=== PATIENT | female | born 1955 | race Caucasian/White ===

== ENCOUNTER 2024-12-13 11:41 | Emergency (ER) | payer MEDICARE, SELFPAY ==
[2024-12-13] VITALS (39 sets, daily range): BP systolic 115–241; BP diastolic 68–149; PULSE 0–106; RESP 14–15; O2SAT 51–100; BMI 39.1
[2024-12-13] MEDS: amiodarone 150 MG/100 ML PREMIX 400 MG IV (11:56)
--- NOTE | 2024-12-13 12:01 | XR_ITS ---
WS: [id number] Exam: XR chest 1V portable [id number] Date/Time of Exam: 12/13/2024 12:01 PM Reason For Exam: dyspnea/cough No priors. Extensive consolidating infiltrates throughout both lungs most prevalent in the mid and upper lung zones. Cardiac enlargement. No pleural effusions or pneumothorax. ET tube in satisfactory position ending about 3 cm above the melba. An enteric tube enters the stomach, the tip is not visible. Bony stru ctures are intact. The mediastinum is normal in contour. XR/XR chest 1V portable [id number] IMPRESSION: 1. Extensive bilateral consolidating infiltrates most prevalent in the mid and upper lung zones. 2. Cardiac enlargement. 3. ET tube and enteric tube both in satisfactory position.
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
--- NOTE | 2024-12-13 12:03 | ECG_ITS ---
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 Measurements Intervals [place]ora Rate: 126 P: 0 SD: 0 QRS: 43 QRSD: 116 T: 70 QT: 338 QTc: 491 Interpretive Statements ATRIAL FIBRILLATION WITH RAPID VENTRICULAR RESPONSE SEPTAL MYOCARDIAL INFARCTION , OF INDETERMINATE AGE [40+ ms Q WAVE IN V1/V2] Compared to ECG 12/13/2024 11:45:30 Ventricular premature complex(es) no longer present Aberrant conduction of supraventricular beat(s) no longer present ST (T wave) deviation no longer present Myocardial infarct finding still present Electronically Signed On 12-14-2024 22:42:28 CDT by Sean Mcgarry M.D. [id number]
--- NOTE | 2024-12-13 12:03 | CT_ITS ---
WS: [id number] CT HEAD TECHNIQUE: Noncontrast CT of the head obtained from the skullbase to the vertex. CLINICAL INFORMATION: Postcode nonresponsive COMPARISON: None. DLP: 1587.[address] scans at [facility] use at least one of these dose optimization techniques: automated exposure control; mA and/or kV adjustment per patient size (includes targeted exams where dose is matched to clinical indication); or iterative reconstruction. FINDINGS: No evidence of intracranial hemorrhage. Ventricular system and basal cisterns are patent. Mild small vessel changes with mild parenchymal volume loss. No extra-axial fluid collections. Thomas-white differentiation appears maintained but somewhat indistinct. This may be due to technique versus early anoxia Paranasal sinuses and mastoid air cells are well aerated. .Normal visualized soft tissues. CT/CT head wo con* [id number] IMPRESSION: Some images degraded by beam hardening artifact. 1. No evidence of intracranial hemorrhage 2. Somewhat indistinct but maintained thomas-white differentiation may be due to technique versus early anoxia considering recent code. 3. No other acute findings
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
[2024-12-13 12:18] LABS: Hematocrit 42.2 % (36-47); Hemoglobin 12.00 g/dL (11.27-16.99); Mean Corpuscular HGB Conc 28.4 g/dL (30-55); Mean Corpuscular Hemoglobin 25.2 pg (27-33); Mean Corpuscular Volume 88.5 fl (85-98); Nucleated Red Blood Cells % 0.3 %; Platelet Count 397 10^3/cmm (157-399); Red Blood Count 4.77 10^6/uL (3.85-5.65); White Blood Count 24.83 10^3/uL (3.29-11.43)
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
[2024-12-13 12:28] LABS: Alanine Aminotransferase 246 U/L (0-33); Albumin Level 3.4 g/dL (3.5-5.2); Alkaline Phosphatase 186 U/L (35-105); Blood Urea Nitrogen 13 mg/dL (8-23); Calcium 12.9 mg/dL (8.5-10.5); Carbon Dioxide 20 mmol/L (22-29); Chloride 101 mmol/L (98-107); Creatinine Clr Calc Pharmacy 69.9713; Globulin 2.0 g/dL (1.3-4.6); Glucose 327 mg/dL (65-115); Magnesium 2.5 mg/dL (1.7-2.3); Osmolality Calculated 301 mOsm/kg (285-295); Sodium 139 mmol/L (136-145); Total Protein 5.4 g/dL (6.6-8.7)
[2024-12-13 12:30] LABS: Anion Gap 21.7 (5-19); Aspartate Amino Transferase 261 U/L (0-32); Potassium 3.7 mmol/L (3.5-5.1); Troponin(5th) Baseline 25 ng/L (0-10)
[2024-12-13] MEDS: dilTIAZem 100 MG in sodium chloride 0.9% (add-van) 100 ML IV (12:30)
[2024-12-13 12:32] LABS: Ketone (Acetest) Serum Negative (Negative)
[2024-12-13 12:42] LABS: Lipase 40 U/L (13-60)
--- NOTE | 2024-12-13 12:44 | ECG_ITS ---
[facility] Test Date: 2024-12-13 Pat Name: Rekha Nunez Department: Room: Gender: Female Credit Representative: : 1955 Requested By: Petey Aguilar Order Number: [id number] Rosalio MD: Sean Mcgarry M.D. Measurements Intervals [place] Rate: 83 P: 72 ND: 219 QRS: 31 QRSD: 110 T: 83 QT: 490 QTc: 578 Interpretive Statements SINUS RHYTHM WITH FIRST DEGREE AV BLOCK MODERATE INTRAVENTRICULAR CONDUCTION DELAY [105+ ms QRS DURATION, 80+ ms Q/S IN V1/V2, NO Q AND 60+ ms R IN I/aVL/V5/V6] NONSPECIFIC ST & T-WAVE ABNORMALITY PROLONGED QT INTERVAL Compared to ECG 12/13/2024 12:01:57 First degree AV block now present Intraventricular conduction delay now present T-wave abnormality now present Prolonged QT interval now present Atrial fibrillation no longer present Myocardial infarct finding no longer present Electronically Signed On 12-14-2024 22:54:54 CDT by Sean Mcgarry M.D. [id number]
[2024-12-13 12:54] LABS: Slide Review Slide Review Perform
[2024-12-13 12:55] LABS: Lactic Sepsis W/Reflex 8.2 mmol/L (0.5-2.2)
[2024-12-13] MEDS: piperacillin-tazobactam 3.375 GM in sodium chloride 0.9% (plus) 50 ML IV (13:07)
[2024-12-13] MEDS: midazolam hcl 100 MG/100 ML BAG IV (13:33)
[2024-12-13] MEDS: fentaNYL 1,000 MCG/100 ML BAG 2.5 MCG IV (13:33)
[2024-12-13 13:48] LABS: Alveolar-Arterial Oxygen Gradi 71.2 mmHg (5-10); Arterial Blood Gas Hematocrit 40.4 % (37-47); Blood Gas Operator Identificat glc; Blood Gas Sample Site Brachial, right; Blood Gas Sample Type Arterial; Carboxyhemoglobin 0.6 %THgb (0.4-20.1); Glucose Level-ABG 396.0 mg/dL (70-115); HCO3 ABG 19.5 mmol/L (22-26); Ionized Calcium Level - ABG 1.5 mmol/L (1.1-1.4); Methemoglobin 0.3 % (0.4-1.5); Oxygen Saturation ABG 91.9; PO2 ABG 89.1 mmHg (80.0-100.0); PO2 FiO2 Ratio Arterial Blood 89; Potassium Level - ABG 3.2 mmol/L (3.5-5.0); Sodium Level - ABG 141.0 mmol/L (131-143)
[2024-12-13 13:49] LABS: ABG PCO2 67.8 mmHg (35-45); ABG PH Result 7.07 (7.35-7.45)
--- NOTE | 2024-12-13 13:50 | PC.PHAR ---
Medications verified by Otf Rodgers-wrong birthday was entered so meds did not pull through. Otf Faxed them over. Spouse states pt took am meds.
--- NOTE | 2024-12-13 14:03 | ECG_ITS ---
[facility] Test Date: 2024-12-13 Pat Name: Rekha Nunez Department: Room: Gender: Female Quality Technician: : 1955 Requested By: Petey Aguilar Order Number: [id number] Rosalio MD: Sean Mcgarry M.D. Measurements Intervals [place] Rate: 147 P: 0 NH: 0 QRS: 45 QRSD: 126 T: 89 QT: 275 QTc: 431 Interpretive Statements ATRIAL FIBRILLATION WITH RAPID VENTRICULAR RESPONSE WITH ABERRANT CONDUCTION OR VENTRICULAR PREMATURE COMPLEXES SEPTAL MYOCARDIAL INFARCTION , OF INDETERMINATE AGE [40+ ms Q WAVE IN V1/V2] ST DEPRESSION, CONSIDER SUBENDOCARDIAL INJURY [0.1+ mV ST DEPRESSION] No previous ECG available for comparison Electronically Signed On 12-14-2024 22:55:05 CDT by Sean Mcgarry M.D. [id number]
[2024-12-13 14:14] LABS: Glucose Urine UA 3+ (Normal); Nitrate Urine Negative (Negative); Specific Gravity, Urine 1.010 (1.005-1.030)
[2024-12-13 14:15] LABS: Reflex Lactate Order REFLEX LACTIC ORDERD
[2024-12-13 14:16] LABS: Add Urine Microscopic? YES; Universal Test for UA Present (0)
[2024-12-13 14:24] LABS: ABG PCO2 50.3 mmHg (35-45); ABG PH Result 7.31 (7.35-7.45); Alveolar-Arterial Oxygen Gradi 70.9 mmHg (5-10); Arterial Blood Gas Hematocrit 45.0 % (37-47); Blood Gas Allen Test Pos; Blood Gas Operator Identificat BROMA; Blood Gas Sample Site Radial, right; Blood Gas Sample Type Arterial; Blood Gas Tidal Volume 0.45; Carboxyhemoglobin 0.7 %THgb (0.4-20.1); Glucose Level-ABG 291.0 mg/dL (70-115); HCO3 ABG 25.2 mmol/L (22-26); Ionized Calcium Level - ABG 1.3 mmol/L (1.1-1.4); Methemoglobin 0.2 % (0.4-1.5); Oxygen Saturation ABG 97.7; PEEP 5.0 cmH20; PO2 ABG 108.0 mmHg (80.0-100.0); PO2 FiO2 Ratio Arterial Blood 108; Potassium Level - ABG 4.5 mmol/L (3.5-5.0); Sodium Level - ABG 139.0 mmol/L (131-143)
[2024-12-13 14:38] LABS: UA Slide Review UA Slide Review Perf
[2024-12-13 14:39] LABS: UA Manual Slide Review YES
[2024-12-13 14:45] LABS: Lactic Acid level (Lactate) 3.6 mmol/L (0.5-2.2)
[2024-12-13 14:49] LABS: Troponin 5 2HR 170.7 ng/L (0-10); Troponin 5 2HR Delta 145.7 ABS# (0-10)
[2024-12-13] MEDS: nicardipine 20 MG/200 ML PREMIX 50 MG IV (14:59)
[2024-12-13] MEDS: heparin 5,000 unit/mL INJ 1 mL IVP (15:43)
[2024-12-13] MEDS: heparin drip 25,000 UNIT/500 ML PREMIX 32 UNIT IV (16:03)
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
== END 2024-12-13 16:21 | disposition short-term general hospital (02) ==
PROVIDERS: Emergency Provider Family Medicine
DX: I46.9 Cardiac arrest, cause unspecified (principal)
CPT/HCPCS: 31500; 36415; 36416; 36600; 51702; 70450; 71045; 71275; 72125; 80051; 80053; 81001; 82009; 82330; 82550; 82805; 82962; 83605; 83690; 83735; 84484; 85025; 87040; 87086; 93005; 94799; 96365; 96367; 96375; 99291; 99292; A4222; J0283; J1644; J2250; J2404; J2543; J3010; J3490; J9999